=== PATIENT | female | born 2000 | race Caucasian/White ===

== ENCOUNTER 2025-02-06 17:22 | Emergency (ER) | payer BC ==
[2025-02-06 19:01] LABS: #Basophils 0.03 10x3/uL (0.0-0.2); #Eosinophils 0.17 10x3/uL (0.0-0.5); #Monocytes 0.56 10x3/uL (0.0-1.1); #Neutrophils 6.32 10x3/uL (1.5-8.4); %Basophils 0.3 % (0.0-2.0); %Eosinophils 1.9 % (0.0-6.0); %Lymphocytes 21.8 % (18.0-47.0); %Monocytes 6.1 % (0.0-10.0); %Neutrophils 69.5 % (40.0-75.0); Hematocrit 39.2 % (34.9-44.5); Hemoglobin 13.7 g/dL (12.0-15.5); Mean Corpuscular Hemoglobin 29.7 pg (27.0-33.0); Mean Corpuscular Volume 85.0 fL (81.6-98.3); Platelet Count 321 10x3/uL (150-450); Red Blood Cell (RBC) Count 4.61 10x6/uL (3.90-5.03); White Blood Cell (WBC) Count 9.11 10x3/uL (3.5-10.5)
[2025-02-06 19:16] LABS: ALT (SGPT) 23 U/L (Less than 34); AST (SGOT) 23 U/L (11-34); Albumin 4.4 g/dL (3.1-4.5); Alkaline Phosphatase 53 U/L (40-110); Anion Gap 13 mmol/L (10-20); BUN (Urea Nitrogen) 8 mg/dL (7.0-18.7); Bilirubin, Total 0.2 mg/dL (0.3-1.2); Calc. Creatinine Clearance 0 mL/min (70-130); Calcium 9.4 mg/dL (7.8-10.44); Carbon Dioxide 22 mmol/L (22-29); Chloride 107 mmol/L (98-107); Globulin 2.8 g/dL (2.4-3.5); Glucose 95 mg/dL (70-105); Potassium 3.6 mmol/L (3.5-5.1); Sodium 138 mmol/L (136-145)
[2025-02-06 19:21] LABS: Glucose, Urine (Dipstick) Normal (Negative); Leukocyte Negative (Negative); Protein, Urine (Dipstick) Negative (Neg-Trace); Specific Gravity, Urine 1.010 (1.005-1.030)
[2025-02-06 19:34] LABS: Bacteria/HPF 2+ HPF (None Seen); CAUTI Indications for Culture Dysuria,urgency,freq; WBC/HPF 0-3 HPF (0-3)
[2025-02-06 19:35] LABS: Mucous/LPF Rare LPF (<2+)
[2025-02-06 19:36] LABS: Urine Culture Reflex No No
== END 2025-02-06 20:48 | disposition home or self-care (01) ==
LOC: CSHERS 17:22
DX: O20.0 Threatened abortion (principal); Z3A.01 Less than 8 weeks gestation of pregnancy
CPT/HCPCS: 76856; 80053; 81001; 84702; 85025

== ENCOUNTER 2025-02-08 15:33 | Emergency (ER) | payer BC | END 2025-02-08 17:30 | disposition home or self-care (01) | LOC: CSHERS 15:33 | DX: O20.0 Threatened abortion (principal); Z3A.00 Weeks of gestation of pregnancy not specified | CPT/HCPCS: 36415; 84702; 99284 ==